=== PATIENT | female | born 1930 | race Caucasian/White ===

== ENCOUNTER 2016-06-03 13:18 | Emergency (ER) | payer OTHER, MEDICARE ==
[2016-06-03 13:30] VITALS: RESP 18
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
[2016-06-03 14:08] LABS: % IMMATURE GRANULYOCYTES 0.9 % (0.0-1.1); ABSOLUTE IMMATURE GRANULOCYTES 0.08 10^3/uL (0.00-0.10); ADD DIFF? NO; ADD MORPH? NO; ADD SCAN? NO; ATYPICAL LYMPHOCYTE FLAG 0 (0-99); FRAGMENT RBC FLAG 0 (0-99); HEMATOCRIT 37.1 % (38.0-47.0); HEMOGLOBIN 12.5 g/dL (12.6-16.3); LEFT SHIFT FLG 10 (0-99); LIPEMIA HEMOLYSIS FLAG 80 (0-99); MEAN CELL HEMOGLOBIN CONCENTR. 33.7 g/dL (32.4-36.7); MEAN CELL VOLUME 94.9 fL (81.5-99.8); MEAN PLATELET VOLUME 9.9 fL (8.7-11.7); PLATELET CLUMPS FLAG 10 (0-99); PLATELET COUNT 198 10^3/uL (150-400); RED BLOOD CELL COUNT 3.91 10^6/uL (4.18-5.33); RED CELL DISTRIBUTION WIDTH 12.1 % (11.5-15.2)
[2016-06-03] MEDS ORDERED: NS 500 ML IV ONE (14:09)
[2016-06-03 15:17] VITALS: TEMP 97.7
[2016-06-03] MEDS ORDERED: ACETAMINOPHEN 325 MG TAB PO ONE (15:34)
[2016-06-03 16:25] VITALS: BP 141/61; PULSE 61; O2SAT 98
== END 2016-06-03 16:25 | disposition home or self-care (01) ==
LOC: EDUNIT#
DX: S29.9XXA Unspecified injury of thorax, initial encounter (principal); K86.89 Other specified diseases of pancreas; I10 Essential (primary) hypertension; Z85.828 Personal history of other malignant neoplasm of skin; V44.5XXA Car driver injured in collision with heavy transport vehicle or bus in traffic accident, initial encounter; Y92.410 Unspecified street and highway as the place of occurrence of the external cause; Y99.8 Other external cause status; Y93.89 Activity, other specified
CPT/HCPCS: 82947-QW

== ENCOUNTER 2016-06-24 07:46 | Day surgery (SDC) | payer OTHER, MEDICARE ==
[2016-06-24] MEDS ORDERED: LIDOCAINE 1% 5 ML SDV ID PRN (08:26)
[2016-06-24] MEDS ORDERED: LR 1,000 ML IV ONE (08:26)
[2016-06-24] MEDS ORDERED: fentaNYL 100 MCG/2 ML INJ ONE (09:10)
[2016-06-24] MEDS ORDERED: PROPOFOL/EMULSION 500 MG/50 ML BOTTLE IV ONE (09:10)
[2016-06-24] MEDS ORDERED: LIDOCAINE 2% 100 MG/5 ML SYR ONE (09:11)
[2016-06-24] MEDS ORDERED: epHEDrine SULFATE 10 MG/ML SYR ONE (09:20)
[2016-06-24] MEDS ORDERED: levOFLOXACIN 500 MG/DEXTROSE/100 ML BAG IV ONE (09:32)
[2016-06-24] MEDS ORDERED: levOFLOXACIN 500 MG/DEXTROSE 100 ML IV ONE (10:00)
[2016-06-24] MEDS ORDERED: ALBUTEROL 3 ML DEYVIAL IH PRN (10:17)
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
[2016-06-25 19:03] LABS: AMYLASE RESULT 58 U/L
== END 2016-06-24 11:50 | disposition home or self-care (01) ==
LOC: FSGY 07:46
PROVIDERS: ATTEND Internal Medicine Gastroenterology
PROC: 0DB68ZX Excision of Stomach, Via Natural or Artificial Opening Endoscopic, Diagnostic (ICD-10-PCS; principal; 2016-06-24 09:15)
PROC: 0DB98ZX Excision of Duodenum, Via Natural or Artificial Opening Endoscopic, Diagnostic (ICD-10-PCS; principal; 2016-06-24 09:15)
DX: K86.2 Cyst of pancreas (principal); K29.70 Gastritis, unspecified, without bleeding; I10 Essential (primary) hypertension; E03.9 Hypothyroidism, unspecified; Z87.01 Personal history of pneumonia (recurrent)
CPT/HCPCS: J1956; J2001; J2704; J3010

== ENCOUNTER 2016-06-25 21:41 | Emergency (ER) | payer OTHER, MEDICARE ==
[2016-06-25 21:49] VITALS: BP 150/66; TEMP 97.3; O2SAT 96
--- NOTE | 2016-06-25 22:34 | EDPHY ---
General Narrative: CHIEF COMPLAINT: Calf pain HISTORY OF PRESENT ILLNESS: One-day history of left calf pain. This started several hours after taking her 1st dose of Levaquin. Levaquin was prescribed as a prophylaxis for infection status post ERCP that was performed yesterday. This but was performed due to pancreatic cyst. Pain in the calf is mild to moderate. It is worse with exertion ambulation. Improved at rest. Does not radiate. There is no pain over the Achilles tendon. No pain over the ipsilateral foot, knee, thigh. No chest pain or shortness of breath. No abdominal pain. No trauma to the calf. No redness. No swelling. She is concerned because she started a prescription of Levaquin today and 1 of her family member said that she may have ruptured her Achilles tendon because of this. She however has no pain over the Achilles tendon. There is no redness of the leg. No other associated complaints or modifying factors. REVIEW OF SYSTEMS: Ten systems reviewed and are negative unless otherwise noted in the HPI EXAMINATION General Appearance: Alert, no distress Cardiovascular: Pulses normal throughout. Symmetric radial pulses are 2+. Symmetric DP pulses are 2+. Brisk cap refill with good signs of perfusion. Neurological: A&O, sensory symmetric, strength symmetric Skin: Warm and dry, no rash. No erythema. No ecchymosis, lacerations or abrasions. Extremities: Left lower extremity: Mild tenderness of the left calf. There is no edema of the calf or leg. No erythema of the calf. No palpable cord. No pain with passive dorsiflexion of the foot. Achilles tendon is nontender to palpation. There is no edema over the tendon. Negative Tapia test. Range of motion is symmetric in the feet and ankles. Range of motion is symmetric in the knees. Psychiatric: Mood and affect normal DIFFERENTIAL DIAGNOSES: Including but not limited to calf pain, claudication, DVT, muscular strain, sprain MDM: 10:30 p.m. Left calf pain x1 day. This started the same day that she started taking Levaquin. She had a recent ERCP with biopsy of the stomach to a pancreatic cyst. She has no chest pain or shortness of breath. She has no abdominal pain of any kind. She was concerned about her Achilles tendon because the Levaquin, but she has no pain over the Achilles tendon nor does she have any examination that would suggest Achilles tendon rupture. Leg does not appear abnormal in any way, and there is no outward sign of DVT. Ultrasound has been ordered prior to my examination and I will await the results. 10:[address] Winston notified Dr. Edmondson that the ultrasound of the left lower extremity is unremarkable. I re-examined the patient. She still has excellent signs of perfusion with a warm foot. Her left DP pulses 2+. Her left PT pulses 2+. This is symmetric to the right. Range of motion is fully intact. There is no tenderness of the Achilles tendon or erythema of the Achilles tendon. There is no warmth to the calf. I am uncertain why she is having the pain but there is certainly no acute DVT, and there are no signs of vascular compromise. I recommend that she contact her physicians in the morning to discuss continuing the Levaquin or not to continue it. She is also to follow up with them for further workup. Return to ER for any worsening pain, changes in sensory or temperature of the foot. Patient is comfortable this plan and discharged home ambulatory and stable condition. ED Precautions: Worsening pain. Erythema, edema, cyanosis, pallor, paresthesia or anesthesia. SUPERVISION: This patient was independently evaluated without direct examination by the attending physician. Case was discussed with attending physician. Case discussed with Dr. Ley - Diagnostics Imaging Results: Imaging Impressions Extremity Venous Study 06/25/16 22:15 IMPRESSION: No DVT. Findings and recommendations discussed with Chris Edmondson MD at 1055pm hour , 06/25/2016. Final report concurs with initial preliminary interpretation. - History Smoking Status: Never smoked - Objective Vital Signs: Initial Vital Signs Temperature (C) 97.3 F 06/25/16 21:45 Heart Rate 84 06/25/16 21:45 Respiratory Rate 20 06/25/16 21:45 Blood Pressure 150/66 H 06/25/16 21:45 O2 Sat (%) 96 06/25/16 21:45 O2 Delivery Mode Room Air Allergies/Adverse Reactions: carisoprodol [From Soma] Allergy (Mild, Verified 06/25/16 21:48) Other-Enter Comments Penicillins Allergy (Mild, Verified 06/25/16 21:48) Hives Home Medications: Medication Instructions Recorded Acetaminophen [Acetaminophen Extra 500 mg PO Q6HRS PRN 01/20/16 Strength] Nadolol [Corgard] 80 mg PO DAILY@09 01/20/16 traMADol [Ultram 50 mg (*)] 50 mg PO HS PRN 01/20/16 Cardura 06/03/16 Losartan-Hctz 50-12.5 mg Tab 06/23/16 Prevacid 06/23/16 Departure - Departure Disposition: Home, Routine, Self-Care Clinical Impression: Pain of left calf Condition: Good Instructions: Leg Cramps (ED) Additional Instructions: Contact primary care physician in the morning for further workup of the calf pain. Contact GI physician to discuss continuing versus discontinuation of the Levaquin. Return to the ER for worsening pain, numbness, tingling, temperature changes of the foot Referrals: Addis Lopez MD [Primary Care Provider] - As per Instructions
[2016-06-25 23:30] VITALS: PULSE 89; RESP 16
== END 2016-06-25 23:29 | disposition home or self-care (01) ==
DX: M79.662 Pain in left lower leg (principal)

== ENCOUNTER 2016-09-19 11:16 | Inpatient (IN) | payer OTHER, MEDICARE ==
--- NOTE | 2016-09-19 11:21 | EDPHY ---
H & P Time Seen by Provider: 09/19/16 11:19 HPI/ROS: CHIEF COMPLAINT: Left hip pain HISTORY OF PRESENT ILLNESS: Patient was bending over next was stool reaching for cooking oil in the kitchen when she lost her balance and landed on her left hip. Pain immediately after, worse with movement or palpation, unable to stand. Does not radiate. Associated with a little bit of tingling and numbness in left foot. Did not hit her head, no loss of consciousness. REVIEW OF SYSTEMS: Eye: no change in vision ENT: no sore throat Cardiac: no chest pain or syncope Pulmonary: no cough or SOB Abdomen: no vomiting, diarrhea, abdominal pain Musculoskeletal: no back pain Skin: no rash Neuro: no headache, complains of little tingling and numbness in the left foot Constitutional: no fever : no urinary symptoms A comprehensive 10 point review of systems is otherwise negative aside from elements mentioned in the history of present illness. PAST MEDICAL HISTORY: Previous right hip arthroplasty by Dr. Johnson. Hypertension, appendectomy, right rotator cuff surgery and cataract surgery. Social history: Lives independently with her General Appearance: Alert and conversant, cooperative. Eyes: No scleral icterus. ENT, Mouth: Normal mucous membranes. Respiratory: Normal respiratory effort, breath sounds equal, lungs are clear to auscultation. Cardiovascular: Regular rate and rhythm. Normal dorsalis pedis pulse left foot. Gastrointestinal: Abdomen is soft and non tender. Neurological: Alert and oriented x3. Normally conversant. Face symmetric, normal movement and sensation in all extremities. Patient is intact sensation to light touch in the left foot and normal motor function in dorsiflexion and plantar flexion of that foot. Skin: Warm and dry, no rashes. Musculoskeletal: No cervical thoracic or lumbar spine tenderness. Left hip pain on any rotation. Slightly shortened. Psychiatric: Not agitated. Emergency Department course/MDM: History and physical dated 01/20/2016 personally reviewed. 11:34 a.m. discussed with Osito Luong. Admission to hospitalist service, will 1st contact Elizabeth for orthopedic consultation as he did her previous hip surgery. 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 1220: Mike will consult. Smoking Status: Never smoked Constitutional: Initial Vital Signs Temperature (C) 36.5 C 09/19/16 11:30 Heart Rate 51 L 09/19/16 11:30 Respiratory Rate 18 09/19/16 11:30 Blood Pressure 163/78 H 09/19/16 11:30 O2 Sat (%) 98 09/19/16 11:30 O2 Delivery Mode Room Air Allergies/Adverse Reactions: carisoprodol [From Soma] Allergy (Mild, Verified 06/25/16 21:48) Other-Enter Comments Penicillins Allergy (Mild, Verified 06/25/16 21:48) Hives Home Medications: Medication Instructions Recorded Nadolol [Corgard] 80 mg PO DAILY@01/20/16 Lansoprazole [Prevacid] 15 mg PO DAILY 06/23/16 Bismuth Subsalicylate 262 mg PO PRN PRN 09/19/16 [Pepto-Bismol] Doxazosin Mesylate [Doxazosin 8 mg PO HS 09/19/16 Mesylate] Losartan/Hydrochlorothiazide 1 each PO HS 09/19/16 [Losartan-Hctz 100-25 Mg Tab] TRAMADOL HCL [TRAMADOL HCL] 50 mg PO DAILY PRN 09/19/16 Medical Decision Making - Diagnostics EKG Interpretation: 12-lead EKG interpreted by me; official reading is in trace master. My interpretation is sinus rhythm, normal intervals, no ischemic changes. Imaging Results: Imaging Impressions Hip X-Ray 09/19/16 11:27 Impression: Acute oblique left femoral neck fracture. Imaging: I viewed and interpreted images myself Differential Diagnosis: Differential considered including but not limited to femoral neck fracture, intertrochanteric fracture, hip contusion, pelvic fracture. - Data Points Laboratory Results: Laboratory Results 09/19/16 11:20 09/19/16 11:28 09/19/16 09/19/16 11:28 11:20 WBC 9.37 10^3/uL 10^3/uL (3.80-9.50) RBC 3.90 10^6/uL L 10^6/uL (4.18-5.33) Hgb 12.6 g/dL g/dL (12.6-16.3) Hct 37.3 % L % (38.0-47.0) MCV 95.6 fL fL (81.5-99.8) MCH 32.3 pg pg (27.9-34.1) MCHC 33.8 g/dL g/dL (32.4-36.7) RDW 12.7 % % (11.5-15.2) Plt Count 188 10^3/uL 10^3/uL (150-400) MPV 10.4 fL fL (8.7-11.7) Neut % (Auto) 71.0 % % (39.3-74.2) Lymph % (Auto) 20.4 % % (15.0-45.0) [place] % (Auto) 6.2 % % (4.5-13.0) Eos % (Auto) 1.1 % % (0.6-7.6) Baso % (Auto) 0.6 % % (0.3-1.7) Nucleat RBC Rel Count 0.0 % % (0.0-0.2) Absolute Neuts (auto) 6.65 10^3/uL H 10^3/uL (1.70-6.50) Absolute Lymphs (auto) 1.91 10^3/uL 10^3/uL (1.00-3.00) Absolute Monos (auto) 0.58 10^3/uL 10^3/uL (0.30-0.80) Absolute Eos (auto) 0.10 10^3/uL 10^3/uL (0.03-0.40) Absolute Basos (auto) 0.06 10^3/uL 10^3/uL (0.02-0.10) Absolute Nucleated RBC 0.00 10^3/uL 10^3/uL (0-0.01) Immature Gran % 0.7 % % (0.0-1.1) Immature Gran # 0.07 10^3/uL 10^3/uL (0.00-0.10) Sodium 141 mEq/L mEq/L (134-144) Potassium 4.1 mEq/L mEq/L (3.5-5.2) Chloride 108 mEq/L mEq/L (97-110) Carbon Dioxide 21 mEq/l L mEq/l (22-31) Anion Gap 12 mEq/L mEq/L (8-16) BUN 35 mg/dL H mg/dL (7-23) Creatinine 1.0 mg/dL mg/dL (0.6-1.0) Estimated GFR 53 Glucose 113 mg/dL H mg/dL (70-100) Calcium 9.7 mg/dL mg/dL (8.5-10.4) Medications Given: Discontinued Medications Diazepam (Valium Injection) 5 mg IVP EDNOW ONE Stop: 09/19/16 11:37 Last Admin: 09/19/16 11:47 Dose: 5 mg Hydromorphone HCl (Dilaudid) 0.5 mg IVP ONCE ONE Stop: 09/19/16 12:10 Last Admin: 09/19/16 12:18 Dose: 0.5 mg Departure - Departure Disposition: [facility] Inpatient Acute Clinical Impression: Fracture of femoral neck, left, closed Qualifiers: Encounter type: initial encounter Qualified Code(s): S72.002A - Fracture of unspecified part of neck of left femur, initial encounter for closed fracture Condition: Good
[2016-09-19 11:31] LABS: % IMMATURE GRANULYOCYTES 0.7 % (0.0-1.1); ABSOLUTE IMMATURE GRANULOCYTES 0.07 10^3/uL (0.00-0.10); ADD DIFF? NO; ADD MORPH? NO; ADD SCAN? NO; ATYPICAL LYMPHOCYTE FLAG 0 (0-99); FRAGMENT RBC FLAG 0 (0-99); HEMATOCRIT 37.3 % (38.0-47.0); HEMOGLOBIN 12.6 g/dL (12.6-16.3); LEFT SHIFT FLG 10 (0-99); LIPEMIA HEMOLYSIS FLAG 90 (0-99); MEAN CELL HEMOGLOBIN 32.3 pg (27.9-34.1); MEAN CELL HEMOGLOBIN CONCENTR. 33.8 g/dL (32.4-36.7); MEAN CELL VOLUME 95.6 fL (81.5-99.8); MEAN PLATELET VOLUME 10.4 fL (8.7-11.7); PLATELET CLUMPS FLAG 20 (0-99); PLATELET COUNT 188 10^3/uL (150-400); RED CELL DISTRIBUTION WIDTH 12.7 % (11.5-15.2)
[2016-09-19] MEDS ORDERED: DIAZEPAM 10 MG/2 ML SYR ONE (11:32)
[2016-09-19] MEDS ORDERED: DIAZEPAM 10 MG/2 ML SYR IVP ONE (11:36)
[2016-09-19 11:43] LABS: ANION GAP 12 mEq/L (8-16); CALCIUM 9.7 mg/dL (8.5-10.4); CARBON DIOXIDE 21 mEq/l (22-31); CHLORIDE 108 mEq/L (97-110); GLOMERULAR FILTRATION RATE 53; GLUCOSE 113 mg/dL (70-100); POTASSIUM 4.1 mEq/L (3.5-5.2); SODIUM 141 mEq/L (134-144)
--- NOTE | 2016-09-19 11:55 | CPEKG ---
Heart Rate: 47 RR Interval: 1277 P-R Interval: 190 QRSD Interval: 80 QT Interval: 468 QTC Interval: 414 QRS [place]: 21 T Wave [place]: 48 EKG Severity - NORMAL ECG - EKG Impression: SINUS RHYTHM Electronically Signed By: Feliz Leija 19-Sep-2016 12:25:24
[2016-09-19] MEDS ORDERED: HYDROmorphONE/DILAUDID 1 MG/ML SYR IVP ONE (12:09)
[2016-09-19] MEDS ORDERED: HYDROmorphONE/DILAUDID 1 MG/ML SYR ONE (12:10)
[2016-09-19] MEDS ORDERED: ONDANSETRON DISINTEGRATING 4 MG TAB PO PRN (13:25)
[2016-09-19] MEDS ORDERED: ONDANSETRON 4 MG/2 ML VIAL IVP PRN (13:25)
[2016-09-19] MEDS ORDERED: NS 1,000 ML IV SCH (13:30)
[2016-09-19] MEDS ORDERED: traMADol 50 MG TAB PO PRN (13:37)
[2016-09-19] MEDS: HYDROmorphONE/DILAUDID 1 MG/ML SYR IVP PRN (13:57)
--- NOTE | 2016-09-19 14:19 | GHP ---
[f rep st] PREOP HISTORY AND PHYSICAL DATE OF ADMISSION: 09/19/2016 CHIEF COMPLAINT: Left hip pain. DIAGNOSIS: Displaced left femoral neck fracture. ASSOCIATED DIAGNOSIS: Status post right closed reduction and percutaneous fixation of the right hip in January. Claritza is an 85-year-old female, who lives in the community with her , Rom Desai. Indep endent ambulator. Still doing PT for her right hip. She states that her right hip has a limp and a little bit sore, but she is able to walk on it. Today, she had a mechanical fall, lost her balance and fell onto her left side. She was triaged to the emergency room, x-rays were taken, isolated le ft hip pain. X-rays show a displaced femoral neck fracture and what appears to be a healed right fe moral neck fracture with percutaneous screws performed by Dr. Johnson's team. Please see details of ER H and P. PERTINENT ORTHOPEDIC EXAMINATION: Right hip range of motion with pain in her groin. Left hip is sh ort and externally rotated. Pelvis is stable. Bilateral upper extremities without any pain. Abdom en is soft, nondistended. Skin is healthy. X-rays reviewed show a displaced left femoral neck fracture in slight varus, slight external rotatio n with increased visualization of the lesser trochanter. IMPRESSION AND RECOMMENDATIONS: Thirty minutes at the bedside. The primary evaluating team was peter irwin at the bedside. was at the bedside. The patient gave me permission to discuss her case w ith her son, who is a vascular surgeon in [place], and I have a call into him. I think because mindy be has a limp on the right side and there is increased risk of nonhealing with a displaced femoral ne ck fracture, I think percutaneous screws and fixation would be less optimal. We discussed arthropla sty options for the left hip. We discussed the results of hemiarthroplasty versus total hip arthrop lasty. I have a call into my arthroplasty surgeon as a consult to discuss potential need for total hip replacement in the setting of a displaced femoral neck fracture. For now, we will feed her. We will try to plan for surgery early this week to get her ambulatory. I think arthroplasty option wi ll allow her the best weightbearing possibilities for her left hip. The risks, benefits, expectatio ns, and alternatives were discussed. For now, bedrest, pain control, clotting prevention. /[id number]/MODL
[2016-09-19] MEDS: oxyCODONE IR 5 MG TAB PO PRN ×2 (14:48→21:41)
--- NOTE | 2016-09-19 15:04 | GHP ---
[f rep st] HISTORY AND PHYSICAL CHIEF COMPLAINT: Left hip pain. HISTORY OF PRESENT ILLNESS: The patient is an 85-year-old female, who has a history of hypertension and right hip arthroplasty performed last year, who lost her balance while she was in the kitchen. She was trying to reach the vegetable oil on the top shelf. She was going to step on a stool but never made it quite to the stool. She fell and landed on her left side. She had no preceding symptoms. She had no lightheadedness, no chest pain, no shortness of breath. She just lost her footing and fell to her left side. Of note, she needs cataract surgery to her left eye. She has mentioned she is not sure if her vision could have been impacting why she fell. She has no complaints except for pain in the left hip area. PAST MEDICAL HISTORY: 1. Hypertension. 2. H. pylori. PAST SURGICAL HISTORY: 1. Right hip arthroplasty with Dr. Alvarez in January of 2016. 2. Appendectomy as a child. 3. Right rotator cuff repair with Dr. Lawson. 4. Right eye cataract surgery with Dr. Wynne. 5. Carpal tunnel release bilaterally. SOCIAL HISTORY: She is to her who is at the bedside for 51 years. She has 2 children. 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 She has no history of smoking. No history of alcohol use. FAMILY HISTORY: Her mom at age 92, unknown etiology of her . Her father from heart disease at age 78. ALLERGIES: Penicillin causes hives. Soma causes what she describes as an adverse reaction. HOME MEDICATIONS: Include Pepto-Bismol p.r.n., tramadol 50 mg daily, losartan hydrochlorothiazide 100-25 mg tab daily, doxazosin 8 mg p.o. daily at bedtime, nadolol 80 mg daily, and Prevacid 15 mg daily. REVIEW OF SYSTEMS: A 10-point review of system was performed, was negative other than pertinent positives in the HPI and past medical history. PHYSICAL EXAM: GENERAL: The patient is an 85-year-old female, who appears to be in fair health and does not appear to be in any significant distress. VITAL SIGNS: Blood pressure is 130/93, heart rate is 48, respiratory rate is 16, O2 sats on 3 L are 100%, temperature 36.3 Celsius. EYES: Pupils are equal and reactive. EOMs are intact. No conjunctival injection noted. She is wearing glasses. ENT: Normal ears. Hearing intact. Normal lips, teeth. NECK: Trachea is midline. CARDIOVASCULAR: She is in a regular rate and rhythm. No murmurs, rubs, or gallops noted. CHEST/LUNGS: Normal respiratory effort. Lungs clear without wheezing, rales or rhonchi. ABDOMEN: Soft, nontender. No rebound. No guarding. SKIN: No rashes or ulcer noted. MUSCULOSKELETAL: She has upper and equal strength to upper extremities. Left lower extremity is painful but does not appear to be shortened or rotated out. PSYCHIATRIC: She is alert and oriented. Normal mood and affect. Normal judgment, insight, and normal memory. DATA: Reviewed. A CBC shows a white blood cell count of 9.37, hemoglobin 12.6 , hematocrit 37.3, platelet count of 188. Chemistry: Sodium 141, potassium 4.1 , chloride 108, CO2 of 21, BUN of 35, creatinine of 1, glucose of 113. EKG was performed, which I evaluated and interpreted myself, which shows a sinus rhythm. Hip x-ray shows an acute oblique left femoral neck fracture. I reviewed her care with Dr. Sara Mckeon and the plan is for her to have surgery Wednesday. HOSPITAL COURSE PER PROBLEM: 1. Acute left femoral neck fracture. At this time, Dr. Mckeon discussed an arthroplasty for her left hip. The concern was doing a percutaneous screw fixation would be less optimal because of the weakness ongoing in her right leg from previous surgery. Dr. Mckeon spoke with the patient's son. The plan is for surgery on Wednesday. Her cardiac risk is low. Will hold her diuretic in the setting of upcoming surgery. 2. Gait instability. She had a fall last year and this year it could be related to her vision. Will ask for physical therapy and occupational therapy to work with her. 3. Bradycardia. Will place parameters as to when to hold her nadolol. 4. DVT prophylaxis. She is at high risk. Initiated low molecular weight heparin. This will need to be placed on hold after Wednesday mornings' dose with probable surgery on Wednesday. 5. Code status: Full. 6. Length of stay. She will require greater than a 2 midnight stay for further evaluation and treatment. /[id number]/MODL MTDD
[2016-09-19] MEDS: ACETAMINOPHEN 500 MG TAB PO SCH ×2 (16:37→21:41)
[2016-09-20] MEDS: oxyCODONE IR 5 MG TAB PO PRN ×4 (06:51→21:11)
[2016-09-20] MEDS ORDERED: NADOLOL 80 MG PO SCH (09:00)
--- NOTE | 2016-09-20 09:57 | HOSPPROG ---
Hospitalist Progress Note Assessment/Plan: #Displaced left femoral neck fracture: ortho determining b/n hemiarthoplasty vs total. Plan for surgery early this week #Acute left hip pain: due to above #Mechanical fall: says she was not using cane. PT/OT #Diet:regular #DVT ppx: Lovenox #Disp: warrants inpt admission awaiting for surgery, clot prevention Subjective: pain well-controlled Objective: Vital Signs Temp Pulse Resp BP Pulse Ox 37.1 C 60 12 174/77 H 98 09/20/16 08:16 09/20/16 08:16 09/20/16 08:16 09/20/16 08:16 09/20/16 08:16 09/19/16 09/20/16 09/21/16 05:59 05:59 05:59 Intake Total 1750 Output Total 250 Balance 1500 - Physical Exam Constitutional: no apparent distress Eyes: PERRL Ears, Nose, Mouth, Throat: moist mucous membranes Cardiovascular: regular rate and rhythym Respiratory: no respiratory distress Gastrointestinal: normoactive bowel sounds Genitourinary: no bladder fullness Skin: warm Musculoskeletal: other (left leg shorter, externally rotated) Neurologic: AAOx3 Psychiatric: interacting appropriately Lymph, Heme, Immunologic: no cervical LAD ICD10 Worksheet Patient Problems: Problems Problem Status Onset Fracture of femoral neck, left, closed Acute Fall Acute Fracture of femoral neck, right Acute Hip pain, right Acute
[2016-09-20] MEDS: ENOXAPARIN 30 MG/0.3 ML SYR SC SCH (10:11)
[2016-09-20] MEDS: ACETAMINOPHEN 500 MG TAB PO SCH ×3 (10:12→21:11)
[2016-09-20] MEDS: PANTOPRAZOLE SODIUM 40 MG TAB PO SCH (10:12)
[2016-09-20] MEDS: NADOLOL 20 MG TAB PO SCH (10:13)
[2016-09-21] MEDS: oxyCODONE IR 5 MG TAB PO PRN ×3 (02:58→20:47)
[2016-09-21] MEDS: HYDROmorphONE/DILAUDID 1 MG/ML SYR IVP PRN (03:53)
--- NOTE | 2016-09-21 09:54 | SOAPPROG ---
SOAP Progress Note Assessment/Plan: Assessment: L fem neck fx. compromised R hip at baseline. Plan: 09/21/16 09:[address] Calhoun. Plan for Total hip L wednesday. Subjective: in pain. discussed case with her son Alex Kelly. He is in agreement with surgical plan. Objective: Vital Signs Temp Pulse Resp BP Pulse Ox 36.7 C 63 14 117/59 L 97 09/21/16 08:00 09/21/16 08:00 09/21/16 08:00 09/21/16 08:00 09/21/16 08:00 09/20/16 09/21/16 09/22/16 05:59 05:59 05:59 Intake Total 1750 300 Output Total 250 200 Balance 1500 100 skin is healthy. L hip hip is short and externally rotated. mobile foot and toes with good sensation ICD10 Worksheet Patient Problems: Problems Problem Status Onset Fracture of femoral neck, left, closed Acute Fall Acute Fracture of femoral neck, right Acute Hip pain, right Acute
[2016-09-21] MEDS: ENOXAPARIN 30 MG/0.3 ML SYR SC SCH (10:27)
[2016-09-21] MEDS: ACETAMINOPHEN 500 MG TAB PO SCH ×4 (10:28→20:29)
[2016-09-21] MEDS: PANTOPRAZOLE SODIUM 40 MG TAB PO SCH (10:28)
[2016-09-21] MEDS: NADOLOL 20 MG TAB PO SCH (10:37)
[2016-09-21] MEDS ORDERED: VANCOMYCIN 1 GM VIAL ONE ×2 (12:13→12:22)
[2016-09-21] MEDS ORDERED: LR 1,000 ML IV ONE (12:35)
--- NOTE | 2016-09-21 12:43 | PDANEPAE ---
ANE History of Present Illness acute fall, L femoral neck frx ANE Past Medical History - Cardiovascular History Hx Hypertension: Yes Hx Arrhythmias: No Hx Chest Pain: No Hx Coronary Artery / Peripheral Vascular Disease: No Hx CHF / Valvular Disease: No Hx Palpitations: No - Pulmonary History Hx COPD: No Hx Asthma/Reactive Airway Disease: No Hx Recent Upper Respiratory Infection: No Hx Oxygen in Use at Home: No Hx Sleep Apnea: No Sleep Apnea Screening Result - Last Documented: Negative - Neurologic History Hx Cerebrovascular Accident: No Hx Seizures: No Hx Dementia: No - Endocrine History Hx Diabetes: No - Renal History Hx Renal Disorders: No - Liver History Hx Hepatic Disorders: No Hepatic History Comment: PANCREATIC CYST - Neurological & Psychiatric Hx Hx Neurological and Psychiatric Disorders: No - Cancer History Hx Cancer: No - Congenital Disorder History Hx Congenital Disorders: No - GI History Hx Gastrointestinal Disorders: Yes Gastrointestinal History Comment: HEARTBURN - Chronic Pain History Chronic Pain: Yes (knees, lower back) - Surgical History Prior Surgeries: CATARACTS. RETINA SURG. SEUN CARPAL TUNNEL. R HIP. R SHOULDER RTC ANE Review of Systems - Exercise capacity Exercise capacity: limited by disability - Systems Constitutional: Reports: no symptoms Cardiac: Reports: no symptoms Respiratory: Reports: no symptoms Muscolosketal: Reports: joint pain Neurological: Reports: no symptoms ANE Patient History - Allergies Allergies/Adverse Reactions: carisoprodol [From Soma] Allergy (Mild, Verified 06/25/16 21:48) Other-Enter Comments Penicillins Allergy (Mild, Verified 06/25/16 21:48) Hives - Home Medications Home Medications: Nadolol [Corgard] 80 mg PO DAILY@09 01/20/16 [Last Taken 09/18/16] Lansoprazole [Prevacid] 15 mg PO DAILY 06/23/16 [Last Taken 09/18/16] Bismuth Subsalicylate [Pepto-Bismol] 262 mg PO PRN PRN 09/19/16 [Last Taken Unknown] Doxazosin Mesylate [Doxazosin Mesylate] 8 mg PO HS 09/19/16 [Last Taken 09/18/16 ] Losartan/Hydrochlorothiazide [Losartan-Hctz 100-25 Mg Tab] 1 each PO HS [Last Taken 09/18/16] TRAMADOL HCL [TRAMADOL HCL] 50 mg PO DAILY PRN 09/19/16 [Last Taken Unknown] - NPO status NPO Since - Liquids (Date): 09/21/16 NPO Since - Liquids (Time): 08:00 NPO Since - Solids (Date): 09/20/16 NPO Since - Solids (Time): 19:00 - Smoking Hx Smoking Status: Never smoked - Alcohol Use Alcohol Use: None ANE Labs/Vital Signs - Labs Result Diagrams: 09/19/16 11:20 09/19/16 11:28 - Vital Signs Blood Pressure: 127/60 Heart Rate: 61 Respiratory Rate: 16 O2 Sat (%): 2 Height: 162.56 cm Weight: 68.039 kg ANE Physical Exam - Airway Mallampati Score: Class 2 Mouth exam: normal dental/mouth exam - Pulmonary Pulmonary: no respiratory distress - Cardiovascular Cardiovascular: regular rate and rhythym - ASA Status ASA Status: II ANE Anesthesia Plan Anesthesia Plan: spinal
[2016-09-21] MEDS ORDERED: DEXAMETHASONE 4 MG/ML VIAL IVP ONE (12:53)
[2016-09-21] MEDS ORDERED: FAMOTIDINE 20 MG TAB PO ONE (12:53)
[2016-09-21] MEDS ORDERED: ROPIVACAINE 0.2% 80 MG, EPINEPHrine 0.2 MG, KETOROLAC TROMETHAMINE 30 MG in BAG 0 ML IU ONE (12:53)
[2016-09-21] MEDS ORDERED: ACETAMINOPHEN 325 MG TAB PO ONE (12:53)
[2016-09-21] MEDS ORDERED: TRANEXAMIC ACID 3,000 MG in NS 50 ML IRR ONE (12:53)
[2016-09-21] MEDS ORDERED: ceFAZolin 2 GM/DEXTROSE 100 ML IV ONE (12:53)
[2016-09-21] MEDS ORDERED: KETAMINE 100 MG/10 ML SYR ONE (13:13)
[2016-09-21] MEDS ORDERED: fentaNYL 100 MCG/2 ML INJ ONE (13:15)
[2016-09-21] MEDS ORDERED: PROPOFOL/EMULSION 500 MG/50 ML BOTTLE IV ONE (13:28)
[2016-09-21] MEDS ORDERED: PHENYLEPHRINE HCL 100 MCG/ML SYR ONE (13:33)
[2016-09-21] MEDS ORDERED: ONDANSETRON 4 MG/2 ML VIAL IVP PRN (14:28)
[2016-09-21] MEDS ORDERED: NALOXONE HCL 0.4 MG/ML INJ IVP PRN (14:28)
[2016-09-21] MEDS ORDERED: HYDROmorphONE/DILAUDID 1 MG/ML SYR IVP PRN (14:28)
[2016-09-21] MEDS ORDERED: fentaNYL 100 MCG/2 ML INJ IVP PRN (14:28)
[2016-09-21] MEDS ORDERED: PROMETHAZINE HCL 25 MG SUPPR PR PRN (14:45)
[2016-09-21] MEDS ORDERED: MAGNESIUM HYDROXIDE 30 ML UDCUP PO PRN (14:45)
[2016-09-21] MEDS ORDERED: PROMETHAZINE HCL 25 MG/ML INJ IVP PRN (14:45)
[2016-09-21] MEDS ORDERED: CYCLOBENZAPRINE 10 MG TAB PO PRN (14:45)
[2016-09-21] MEDS ORDERED: LACTULOSE 20 GM/30 ML UDCUP PO PRN (14:45)
[2016-09-21] MEDS ORDERED: TEMAZEPAM 15 MG CAP PO PRN (14:45)
[2016-09-21] MEDS ORDERED: diphenhydrAMINE 25 MG CAP PO PRN (14:45)
[2016-09-21] MEDS ORDERED: BISACODYL 10 MG SUPP PR PRN (14:45)
[2016-09-21] MEDS ORDERED: PHARMACY PAIN CONSULT 1 EA MISC PRN (14:45)
[2016-09-21] MEDS ORDERED: METOCLOPRAMIDE 10 MG/2 ML VIAL IVP PRN (14:45)
[2016-09-21] MEDS ORDERED: POLYETHYLENE GLYCOL 3350 17 GM PKT PO PRN (14:45)
[2016-09-21] MEDS ORDERED: DIPHENOXYLATE/ATROPINE LOMOTIL 1 TAB PO PRN (14:45)
--- NOTE | 2016-09-21 14:49 | POSTOPPROG ---
Post Op Note Date of Operation: 09/21/16 Surgeon: Chip Calhoun Transport Analyst: Lisha Anesthesiologist: Venkat Anesthesia: Spinal Pre-op Diagnosis: L femoral neck fx Post-op Diagnosis: same Indication: pain Procedure: L RUI Findings: fx femoral neck, comminuted and displaced Inf/Abcess present in the surg proc area at time of surgery?: No EBL: 100-500
[2016-09-21] MEDS ORDERED: LR 1,000 ML IV SCH (15:00)
--- NOTE | 2016-09-21 17:49 | HOSPPROG ---
Hospitalist Progress Note Assessment/Plan: #Displaced left femoral neck fracture: -plan for RUI #Acute left hip pain: due to above #Mechanical fall: says she was not using cane. PT/OT #Diet:regular #DVT ppx: Lovenox #Disp: warrants inpt admission awaiting for surgery, clot prevention Subjective: significant pain this morning, relieved with IV opioid Objective: Vital Signs Temp Pulse Resp BP Pulse Ox 36.5 C 54 L 14 104/50 L 95 09/21/16 16:00 09/21/16 16:57 09/21/16 16:00 09/21/16 16:57 09/21/16 16:00 09/20/16 09/21/16 09/22/16 05:59 05:59 05:59 Intake Total 2292 767 0117 Output Total 250 200 300 Balance 1500 100 700 - Physical Exam Constitutional: no apparent distress Eyes: PERRL Ears, Nose, Mouth, Throat: moist mucous membranes Cardiovascular: regular rate and rhythym Respiratory: no respiratory distress Gastrointestinal: normoactive bowel sounds Genitourinary: no bladder fullness Skin: warm, normal color Musculoskeletal: other (left foot shortened, externally rotated) Neurologic: AAOx3, CN II-XII Intact Psychiatric: interacting appropriately, anxious ICD10 Worksheet Patient Problems: Problems Problem Status Onset Fracture of femoral neck, left, closed Acute Fall Acute Fracture of femoral neck, right Acute Hip pain, right Acute
--- NOTE | 2016-09-21 18:55 | POSTANESTH ---
Post Anesthetic Evaluation Cardiovascular Status: Normal, Stable Respiratory Status: Normal, Stable Level of Consciousness/Mental Status: Can Participate in Eval Pain Control: Adequate, Prn Tx Ordered Nausea/Vomiting Control: Adequate, Prn Tx Ordered Complications Possibly Related to Anesthesia: None Noted
[2016-09-21] MEDS: SENNOSIDES/DOCUSATE SODIUM TAB PO SCH (20:30)
[2016-09-21] MEDS: ASPIRIN 325 MG TAB PO SCH (20:47)
[2016-09-21] MEDS: ceFAZolin 2 GM/DEXTROSE 100 ML IV SCH (21:00)
[2016-09-22 04:59] LABS: HEMATOCRIT 27.5 % (38.0-47.0)
[2016-09-22 05:20] LABS: ANION GAP 6 mEq/L (8-16); CALCIUM 8.6 mg/dL (8.5-10.4); CARBON DIOXIDE 26 mEq/l (22-31); CHLORIDE 107 mEq/L (97-110); CREATININE 1.4 mg/dL (0.6-1.0); GLOMERULAR FILTRATION RATE 36; GLUCOSE 141 mg/dL (70-100); POTASSIUM 4.3 mEq/L (3.5-5.2); SODIUM 139 mEq/L (134-144)
[2016-09-22] MEDS: ceFAZolin 2 GM/DEXTROSE 100 ML IV SCH (06:19)
[2016-09-22 07:51] VITALS: RESP 16
[2016-09-22] MEDS: NADOLOL 20 MG TAB PO SCH (07:53)
[2016-09-22] MEDS: SENNOSIDES/DOCUSATE SODIUM TAB PO SCH (07:54)
[2016-09-22] MEDS: ACETAMINOPHEN 500 MG TAB PO SCH ×2 (07:54→15:39)
[2016-09-22] MEDS: ASPIRIN 325 MG TAB PO SCH (07:55)
[2016-09-22] MEDS: PANTOPRAZOLE SODIUM 40 MG TAB PO SCH (07:57)
--- NOTE | 2016-09-22 08:30 | HOSPPROG ---
Hospitalist Progress Note Assessment/Plan: #Displaced left femoral neck fracture: #POD 1 RUI. Pain controlled #GERD: tums #ISABELLA: Cr 1.4. Hold NSAIDs. #Acute left hip pain: due to above. DC morphine with ISABELLA #Mechanical fall: says she was not using cane. PT/OT #Diet:regular #DVT ppx: ASA #Disp: FU 1 week with Ortho. Awaiting rehab placement Subjective: denies pain now Objective: Vital Signs Temp Pulse Resp BP Pulse Ox 36.4 C 55 L 16 126/51 H 100 09/22/16 07:48 09/22/16 07:48 09/22/16 07:48 09/22/16 07:48 09/22/16 07:48 Laboratory Results 09/22/16 04:16 09/22/16 04:16 09/21/16 09/22/16 09/23/16 05:59 05:59 05:59 Intake Total 300 1375 Output Total 200 650 Balance 100 725 - Physical Exam Constitutional: no apparent distress Eyes: PERRL Ears, Nose, Mouth, Throat: moist mucous membranes Cardiovascular: regular rate and rhythym Respiratory: no respiratory distress Genitourinary: no bladder fullness Skin: warm Musculoskeletal: full muscle strength, other (left hip surgical site dressed, C/ D/I ) ICD10 Worksheet Patient Problems: Problems Problem Status Onset Fracture of femoral neck, left, closed Acute Fall Acute Fracture of femoral neck, right Acute Hip pain, right Acute
--- NOTE | 2016-09-22 09:14 | SOAPPROG ---
SOAP Progress Note Assessment/Plan: Assessment: s/p L RUI for femoral neck fx, POD 1 doing well work with PT WBAT with walker Plan: 09/22/16 09:13 Objective: Vital Signs Temp Pulse Resp BP Pulse Ox 36.4 C 55 L 16 126/51 H 100 09/22/16 07:48 09/22/16 07:48 09/22/16 07:48 09/22/16 07:48 09/22/16 07:48 Laboratory Results 09/22/16 04:16 09/22/16 04:16 09/21/16 09/22/16 09/23/16 05:59 05:59 05:59 Intake Total 300 1375 Output Total 200 650 Balance 100 725 ICD10 Worksheet Patient Problems: Problems Problem Status Onset Fracture of femoral neck, left, closed Acute Fall Acute Fracture of femoral neck, right Acute Hip pain, right Acute
[2016-09-22] MEDS: ENOXAPARIN 30 MG/0.3 ML SYR SC SCH (09:55)
--- NOTE | 2016-09-22 12:56 | GOP ---
[f rep st] OPERATIVE REPORT DATE OF OPERATION: 09/21/2016 SURGEON: Fabi Calhoun MD BAND TACKER: Lisha, certified surgical assistant. ANESTHESIA: Spinal. PREOPERATIVE DIAGNOSIS: Left displaced femoral neck fracture. POSTOPERATIVE DIAGNOSIS: Left displaced femoral neck fracture. PROCEDURE PERFORMED: Total hip arthroplasty with x-ray. FINDINGS: ESTIMATED BLOOD LOSS: 200 cc. INDICATIONS: The patient has progressively worsening arthritis of the hip which has failed medical management. The patient understands the treatment options including continued non-operative care and has selected surgical intervention. The patient has decided to undergo total hip arthroplasty via the direct anterior approach, understanding the risks of the procedure including , but not limited to, neurovascular injury, infection, persistent pain, component wear and loosening, deep venous thrombosis, pulmonary embolism, limb length inequality, hip instability (including dislocation), and intra-operative fractures. DESCRIPTION OF PROCEDURE: After proper identification of the patient including verification and marking the surgical site, the patient was brought to the operating room and placed in the supine position. All bony prominences were well padded. Anesthesia was induced without complication and intravenous prophylactic antibiotics were administered prior to skin incision. The operative leg was placed in the Trumpf Arch table extension and the well leg in a Yellofin leg armando. The patient was prepped and draped in the usual sterile fashion. The C-arm was draped for intra-operative fluoroscopy to check acetabular position, femoral component position including leg length and femoral offset. Attention was then drawn to surgical exposure of the hip. An incision was made with a #10 Bard Ash blade starting 3 cm lateral and 3 cm distal to the anterior superior iliac spine measuring 8-10 cm and coursing distally toward the greater trochanter. The skin and subcutaneous tissues were divided sharply down to the fascia lala. The fascia lala was incised in line with the skin incision exposing the underlying tensor fascia lala muscle. The muscle was bluntly elevated from the fascia and the first extracapsular Cobra retractor was placed laterally at the junction of the superior femoral neck and greater trochanter. The lateral femoral circumflex vessels were identified, cauterized , and divided with the Aquamantys bipolar cautery. The deep investing fascia of the TFL was divided to allow proper mobilization of the muscle preventing damage during the retraction. The reflected head of the rectus femoris muscle was elevated off the anterior hip capsule and a medial Cobra retractor was placed just proximal to the lesser trochanter. The anterior capsulotomy was made sharply from the superolateral acetabulum to the saddle junction of the superior femoral neck and greater trochanter, then coursing inferomedial towards the lesser trochanter. The retractors were then placed in the intracapsular position for femoral neck osteotomy. Corresponding to pre-operative templating, the osteotomy was made with the oscillating saw carefully protecting the greater trochanter and soft tissues. The femoral head was removed from the acetabulum with a corkscrew and confirmed to be a displaced femoral neck fracture. The Arch table extension was then placed in 40 degrees external rotation. Attention was then drawn to the acetabular preparation. After placement of the anterior and posterior Cobra retractors outside the labrum and intracapsular, the circumferential labrum was removed sharply. The foveal contents were then removed and hemostasis obtained with cautery. The first reamer selected was sized using the removed femoral head. Reaming began with medialization and then commenced in 2 mm increments at 45 degrees of abduction and 15 degrees of anteversion using fluoroscopic navigation. Reaming ceased 1 mm less than the definitive acetabular component and corresponded to the pre-operative templating. The final acetabular component was inserted using fluoroscopy to achieve proper orientation yielding excellent purchase and stability in the acetabulum. The final acetabular liner was then placed and its seating confirmed. Attention was then turned to the femur. The Arch table extension was placed in extension and adduction, delivering the osteotomized femoral neck into the wound. A 2-pronged femoral elevator was placed at the calcar and another at the tip of the greater trochanter. The posterolateral capsule was released with cautery allowing mobilization of the femur lateral and anterior for preparation. The external rotators were visualized and preserved. A curette and rongeur were used to open the starting point for broaching. Serial broaching started with the #0 broach and ended with the broach that exhibited excellent fit in the proximal femur. A change in pitch during mallet strikes was accompanied by the inability to advance the broach any further. The trial reduction was performed and fluoroscopic navigation was utilized to check limb length. Adjustments were made to equalize limb length accordingly. After the final trials were accepted they were removed and the wound was copiously lavaged. The femoral component was seated to the same depth as the final broach and the femoral head was impacted onto the clean trunnion. The hip was then reduced for the final time and once more fluoroscopy was used to check that limb length equality was achieved. The wound was irrigated and closed in layers, the fascia lala with 2-0 Quill, the subcutaneous tissue with 2-0 Quill, and the skin with Dermabond. Sterile dressings were applied. Final sharps and sponge counts were accurate. The patient was then transferred to a hospital bed and brought to the recovery room in stable condition. IMPLANTS: Accolade II, size 5 at 127. Acetabular component a 50 mm Tritanium. The liner is a Trident X3, 32 mm. The head is a Biolox Delta 32 mm, -4. /[id number]/MODL MTDD
[2016-09-22] MEDS ORDERED: CALCIUM CARBONATE 500 MG CHEWABLE TAB PO PRN ×2 (13:56→14:07)
--- NOTE | 2016-09-22 14:22 | PDIAF ---
- Diagnosis Diagnosis: fall Code Status: Full Code - Medication Management Discharge Medications: Medications to Continue on Transfer Nadolol [Corgard] 80 mg PO DAILY@09 01/20/16 [Last Taken 09/18/16] Lansoprazole [Prevacid] 15 mg PO DAILY 06/23/16 [Last Taken 09/18/16] Bismuth Subsalicylate [Pepto-Bismol] 262 mg PO PRN PRN 09/19/16 [Last Taken Unknown] Doxazosin Mesylate [Doxazosin Mesylate] 8 mg PO HS 09/19/16 [Last Taken 09/18/16 ] Losartan/Hydrochlorothiazide [Losartan-Hctz 100-25 Mg Tab] 1 each PO HS [Last Taken 09/18/16] TRAMADOL HCL [TRAMADOL HCL] 50 mg PO DAILY PRN 09/19/16 [Last Taken Unknown] Discharge Medications: Refer to the Discharge Home Medication list for PRN reason. - Orders Services needed: Registered Nurse, Certified Turbine Subassembler, Master Lance Crewmember , Physical Therapy, Occupational Therapy Diet Recommendation: no restrictions on diet Diet Texture: Regular Texture Diet - Labs/Radiology BMP Date: 09/23/16 - Follow Up Care Current Providers and Referrals: Patient,NotPresent [Unknown] - As per Instructions
--- NOTE | 2016-09-22 14:42 | SOAPPROG ---
SOAP Progress Note Assessment/Plan: Assessment: s/p L RUI (FN fx), POD 1 continue PT, WBAT with walker Plan: D/C once cleared PT/OT Pain management RTC Dr Calhoun as scheduled 09/22/16 14:42 09/22/16 14:44 Subjective: Patient doing well, sitting in chair, pain controlled. She walked to the bathroom earlier. No BM since last Wednesday. Objective: Vital Signs Temp Pulse Resp BP Pulse Ox 36.3 C 55 L 16 130/64 H 94 09/22/16 12:09 09/22/16 12:09 09/22/16 12:09 09/22/16 12:09 09/22/16 12:09 Laboratory Results 09/22/16 04:16 09/22/16 04:16 09/21/16 09/22/16 09/23/16 05:59 05:59 05:59 Intake Total 300 1375 400 Output Total 200 650 Balance 100 725 400 skin dry, cool surgical dressing in place ICD10 Worksheet Patient Problems: Problems Problem Status Onset Fracture of femoral neck, left, closed Acute Fall Acute Fracture of femoral neck, right Acute Hip pain, right Acute
[2016-09-22 15:22] VITALS: BP 106/47; PULSE 60; TEMP 97.5; O2SAT 92
[2016-09-22] MEDS: oxyCODONE IR 5 MG TAB PO PRN (15:39)
--- NOTE | 2016-09-22 15:46 | GDS ---
[f rep st] DISCHARGE SUMMARY DISCHARGE DIAGNOSES: 1. Displaced left femoral neck fracture, status post RUI. 2. Gastroesophageal reflux disease. 3. Acute hip pain. 4. Acute kidney injury. 5. Mechanical fall. PROCEDURE: Total hip arthroplasty, 09/21/2016, by Dr. Calhoun. HISTORY OF PRESENT ILLNESS: The patient is an 85-year-old female, history of hypertension and right hip arthroplasty, who lost balance while she was in the kitchen. She said she was reaching for something in the cabinet, and did not have her cane, thus tried to step on a stool, but never quite made it fully on it. She fell and landed on her left side with subsequent pain. She denied any prodromal symptoms like chest pain, shortness of breath, dizziness or clamminess. HOSPITAL COURSE BY PROBLEM: 1. Displaced left femoral neck fracture: due to mechanical fall. Underwent RUI. Cleared by PT, OT for rehab. Continue full dose aspirin for 3 weeks for DVT prophylaxis. 2. GERD. Tums. 3. ISABELLA: Creatinine mildly elevated at 1.4 today. Recommend repeat tomorrow, hold NSAIDs, and renally dose any medications. 4. Acute left hip pain: Controlled with Tramadol and Tylenol. Avoid NSAIDs, with ISABELLA. 5. Mechanical fall. She says she was not using her cane appropriately. Discharge to [facility] for rehab. DISPOSITION: Patient is stable for discharge. FOLLOW UP: 1. Dr. Calhoun with Orthopedics. 2. Continue aspirin through October 13 for DVT prophylaxis. 3. Repeat BMP on 09/23/2016. /[id number]/MODL MTDD
--- NOTE | 2016-09-22 19:51 | PDIAF ---
- Diagnosis Diagnosis: fall, [place] Code Status: Full Code - Medication Management Discharge Medications: Medications to Continue on Transfer Lansoprazole [Prevacid] 15 mg PO DAILY 06/23/16 [Last Taken 09/18/16] Bismuth Subsalicylate [Pepto-Bismol] 262 mg PO PRN PRN 09/19/16 [Last Taken Unknown] Doxazosin Mesylate 8 mg PO HS 09/19/16 [Last Taken 09/18/16] TRAMADOL HCL 50 mg PO DAILY PRN 09/19/16 [Last Taken Unknown] Acetaminophen [Tylenol ES 500 mg (*)] 1,000 mg PO TID tab 09/22/16 [Last Taken Unknown] Aspirin [Aspirin EC] 325 mg PO DAILY #30 tablet. 09/22/16 [Last Taken Unknown] Discharge Medications: Refer to the Discharge Home Medication list for PRN reason. - Orders Services needed: Registered Nurse, Certified Environmental Services Worker, Master Pencil Sorter , Physical Therapy, Occupational Therapy Diet Recommendation: no restrictions on diet Diet Texture: Regular Texture Diet - Labs/Radiology BMP Date: 09/23/16 - Follow Up Care Current Providers and Referrals: Chip Calhoun MD [Medical Doctor] - Patient,NotPresent [Unknown] - As per Instructions
== END 2016-09-22 17:06 | DRG 470 ==
LOC: EDUNIT# → F3N 12:46
PROVIDERS: ADMIT Internal Medicine; ATTEND Internal Medicine
PROC: 0SRB04Z Replacement of Left Hip Joint with Ceramic on Polyethylene Synthetic Substitute, Open Approach (ICD-10-PCS; principal; 2016-09-21 13:00)
DX: S72.002A Fracture of unspecified part of neck of left femur, initial encounter for closed fracture (principal); Y93.G3 Activity, cooking and baking; Y92.010 Kitchen of single-family (private) house as the place of occurrence of the external cause; W19.XXXA Unspecified fall, initial encounter; N17.9 Acute kidney failure, unspecified; R00.1 Bradycardia, unspecified; R26.9 Unspecified abnormalities of gait and mobility; K21.9 Gastro-esophageal reflux disease without esophagitis; H26.9 Unspecified cataract; I10 Essential (primary) hypertension
CPT/HCPCS: 97161-GP; 97166-GO; G8978-GP-CJ; G8979-GP-CI; G8987-GO-CJ; G8988-GO-CI; J0171; J0690; J1100; J1170; J1650; J1885; J2370; J2704; J2795; J3010; J3370

== ENCOUNTER 2018-09-05 19:09 | Emergency (ER) | payer OTHER, MEDICARE | END 2018-09-05 21:28 | disposition home or self-care (01) ==